=== PATIENT | female | born 1965 | race Caucasian/White ===

== ENCOUNTER 2017-07-21 11:56 | Day surgery (SDC) | payer BC ==
[~2017-07-21] VITALS: Ht 152.4 cm; Wt 57.1 kg
[~2017-07-21 11:56] MED LIST: NO HOME MEDICATIONS
[2017-07-21] MEDS ORDERED: EPA FISH OIL1 SGL PO (12:20)
[2017-07-21 12:22] VITALS: BP 130/91; PULSE 93; TEMP 98.6
[2017-07-21 13:38] VITALS: BP 128/89; PULSE 103; TEMP 98.4
[2017-07-21 13:53] VITALS: BP 121/82; PULSE 99
[2017-07-21 14:08] VITALS: BP 102/71; PULSE 86
[2017-07-21 14:23] VITALS: BP 116/83; PULSE 83
== END 2017-07-21 14:34 | disposition home or self-care (01) ==
LOC: SDCO 11:56
DX: Z12.11 Encounter for screening for malignant neoplasm of colon (principal); D12.2 Benign neoplasm of ascending colon; K64.0 First degree hemorrhoids; I10 Essential (primary) hypertension; K58.9 Irritable bowel syndrome, unspecified; Z90.710 Acquired absence of both cervix and uterus
CPT/HCPCS: OP; J2250; J2405; J3010; J7030

== ENCOUNTER → 2017-09-21 | Outpatient (CLI) | payer BC ==
[~2017-09-21] MED LIST changes: +EPA FISH OIL1 SGL PO
== END ==
LOC: MC.RAD 14:32
DX: Z12.31 Encounter for screening mammogram for malignant neoplasm of breast (principal)

== ENCOUNTER → 2018-09-23 | Outpatient (CLI) | payer BC | LOC: MC.RAD 16:15 | DX: Z12.31 Encounter for screening mammogram for malignant neoplasm of breast (principal); Z98.890 Other specified postprocedural states ==

== ENCOUNTER 2022-11-07 10:15 | Outpatient (RCR) | payer OTHER ==
[~2022-11-07 10:15] MED LIST changes: +NORCO 325 MG-51 TAB PO; +OMNICEF 300MG300 MG PO; +ZOFRAN ODT4 MG PO
== END 2022-11-08 ==
LOC: WSOH
DX: S76.312D Strain of muscle, fascia and tendon of the posterior muscle group at thigh level, left thigh, subsequent encounter (principal); S20.211D Contusion of right front wall of thorax, subsequent encounter; M54.50 Low back pain, unspecified; W01.0XXD Fall on same level from slipping, tripping and stumbling without subsequent striking against object, subsequent encounter; Y99.0 Civilian activity done for income or pay; I10 Essential (primary) hypertension; I48.91 Unspecified atrial fibrillation